=== PATIENT | male | born 1980 | race Asian ===

== ENCOUNTER 2016-12-11 11:01 | Emergency (ER) | payer SELFPAY ==
[~2016-12-11] VITALS: Ht 170.2 cm; Wt 77.3 kg
[2016-12-11] MEDS ORDERED: HYDR200T4 PO (11:10)
[2016-12-11 11:32] LABS: BASOPHILS % (AUTO) 0.3 % (0.0-2.0); EOSINOPHILS % (AUTO) 0.5 % (1.0-6.0); HEMATOCRIT 42.8 % (41-53); HEMOGLOBIN 14.4 g/dL (13.5-17.5); LYMPHOCYTES % (AUTO) 26.5 % (22.0-44.0); MEAN CORPUSCULAR HEMOGLOBIN 30.2 pg (26.0-34.0); MEAN CORPUSCULAR HGB CONC 33.5 G/dL (31.0-37.0); MEAN CORPUSCULAR VOLUME 90 fL (80-100); MONOCYTES # (AUTO) 0.6 K/uL (0.1-1.0); MONOCYTES % (AUTO) 7.4 % (2.0-9.0); NEUTROPHILS # (AUTO) 4.9 K/uL (1.8-7.7); NEUTROPHILS % (AUTO) 65.3 % (40.0-70.0); PLATELET COUNT (AUTO) 315 K/uL (150-450); RED BLOOD CELL COUNT(AUTO) 4.75 MIL/uL (4.50-5.90); WHITE BLOOD COUNT (AUTO) 7.4 K/uL (4.5-11.0)
[2016-12-11 11:41] LABS: ANION GAP 13 mmol/L (8-16); CALCIUM, TOTAL 9.7 mg/dL (8.8-10.5); CARBON DIOXIDE 25 mmol/L (22-29); CHLORIDE 98 mmol/L (98-107); CREATININE 1.13 mg/dL (0.60-1.30); GLOMERULAR FILTR. RATE CALC > 60 mL/min (>60); POTASSIUM 3.5 mmol/L (3.5-5.1); SODIUM SERUM 136 mmol/L (136-145); UREA NITROGEN, BLOOD 8 mg/dL (7-18)
[2016-12-11] MEDS ORDERED: SODIUM CHLORIDE 0.9% 1,000 ML IV ONE (11:45)
[2016-12-11 11:58] LABS: SALICYLATE < 2.8 mg/dL (2.8-20.0)
[2016-12-11 12:07] LABS: ACETAMINOPHEN < 2 mcg/mL (10-30)
[2016-12-11 12:16] LABS: GLUCOSE,POINT OF CARE 112 MG/DL (70-110)
[2016-12-11] MEDS ORDERED: LORazepam 1 MG TABLET PO ONE (13:45)
[2016-12-11 15:55] VITALS: BP 152/79
== END 2016-12-11 16:05 | disposition home or self-care (01) ==
LOC: EMS 11:03
DX: T43.625A Adverse effect of amphetamines, initial encounter (principal); F17.210 Nicotine dependence, cigarettes, uncomplicated; Y92.89 Other specified places as the place of occurrence of the external cause
CPT/HCPCS: 36415; 80048; 80307; 82948; 82962; 85025; 93005; 96360; 99285; G0480; G0481; J7030